=== PATIENT | female | born 1950 | race Two or more races ===

== ENCOUNTER 2024-10-09 23:12 | Emergency (ER) | payer MEDICARE, OTHER | END 2024-10-10 00:18 | disposition left against medical advice (07) | LOC: ER 23:19 | DX: R51.9 Headache, unspecified (principal); M54.50 Low back pain, unspecified; Z53.21 Procedure and treatment not carried out due to patient leaving prior to being seen by health care provider ==

== ENCOUNTER 2025-03-16 00:35 | Emergency (ER) | payer MEDICARE, OTHER ==
[~2025-03-16] VITALS: Ht 167.6 cm; Wt 81.6 kg
[2025-03-16] MEDS ORDERED: hydrALAZINE HCL IV 20 MG VIAL ONE (01:26)
[2025-03-16] MEDS ORDERED: ONDANSETRON HCL/PF 4 MG/2 ML VIAL ONE (01:26)
[2025-03-16] MEDS: hydrALAZINE HCL IV 20 MG VIAL IV ONE (01:32)
[2025-03-16] MEDS: ONDANSETRON HCL/PF 4 MG/2 ML VIAL IVP ONE (01:32)
[2025-03-16 01:33] LABS: PLATELET COUNT (AUTO) 181 K/uL (150-450); RED BLOOD CELL COUNT(AUTO) 4.64 MIL/uL (4.0-5.2); RED CELL DISTRIBUTION WIDTH 15.0 % (11.5-15.0); WHITE BLOOD COUNT (AUTO) 6.1 K/uL (4.3-11.0)
[2025-03-16 01:41] LABS: CALCIUM, SERUM 9.6 mg/dL (8.5-10.1); CREATININE 0.6 mg/dL (0.6-1.3); SODIUM SERUM 142 mmol/L (136-145); UREA NITROGEN, BLOOD 17 mg/dL (7-18)
[2025-03-16 01:55] LABS: NT-PRO BNP 205 pg/mL (0-125)
[2025-03-16] MEDS: ACETAMINOPHEN 325 MG TABLET PO ONE (03:16)
[2025-03-16] MEDS ORDERED: ACETAMINOPHEN 325 MG TABLET ONE (03:17)
[2025-03-16 04:08] VITALS: BP 155/87; TEMP 98.6; O2SAT 96
== END 2025-03-16 04:09 | disposition home or self-care (01) ==
LOC: ER 00:42
DX: I11.9 Hypertensive heart disease without heart failure (principal); E11.9 Type 2 diabetes mellitus without complications; R06.02 Shortness of breath; R51.9 Headache, unspecified; E87.8 Other disorders of electrolyte and fluid balance, not elsewhere classified
CPT/HCPCS: 99285; 96374; 71045; 96375; 93005; 85025; 80048; 36415; 84484; 83880; J0360; J2405

== ENCOUNTER 2025-04-16 00:58 | Emergency (ER) | payer MEDICARE, OTHER ==
[~2025-04-16] VITALS: Ht 157.5 cm; Wt 72.6 kg
[2025-04-16 02:24] LABS: PLATELET COUNT (AUTO) 202 K/uL (150-450); RED BLOOD CELL COUNT(AUTO) 5.00 MIL/uL (4.0-5.2); RED CELL DISTRIBUTION WIDTH 15.3 % (11.5-15.0); WHITE BLOOD COUNT (AUTO) 8.0 K/uL (4.3-11.0)
[2025-04-16 02:43] LABS: ASPARTATE AMINOTRANSFERASE 13 U/L (15-37); CALCIUM, SERUM 10.1 mg/dL (8.5-10.1); CREATININE 0.6 mg/dL (0.6-1.3); SODIUM SERUM 144 mmol/L (136-145); TOTAL PROTEIN, SERUM 8.0 g/dL (6.4-8.2); UREA NITROGEN, BLOOD 19 mg/dL (7-18)
[2025-04-16 02:46] LABS: ERYTHROCYTE SEDIMENTATION RATE 23 MM/HR (0-30)
[2025-04-16 02:47] LABS: APPEARANCE,URINE CLEAR (CLEAR); BLOOD, URINE NEGATIVE Ery/uL (NEGATIVE); LEUKOCYTE ESTERASE ,URINE TRACE (NEGATIVE); NITRITE, URINE POSITIVE (NEGATIVE); UGLUCOSE NEGATIVE (NEGATIVE)
[2025-04-16 02:53] LABS: INR 1.09 (0.91-1.10)
[2025-04-16] MEDS ORDERED: NITR100C6 PO (03:04)
[2025-04-16 03:10] LABS: ADD URINE CULTURE YES; SQUAMOUS EPITHELIAL CELL,UR 0-2 /HPF (None Seen)
[2025-04-16 03:21] VITALS: BP 146/84; TEMP 98.2; O2SAT 96
== END 2025-04-16 03:21 | disposition home or self-care (01) ==
LOC: ER 01:32
DX: I10 Essential (primary) hypertension (principal); E11.9 Type 2 diabetes mellitus without complications; R06.02 Shortness of breath; R10.20 Pelvic and perineal pain unspecified side; Z91.148 Patient's other noncompliance with medication regimen for other reason
CPT/HCPCS: 36415; 70450-TC; 71045-TC; 80048-TC; 80076-TC; 81001; 84484-TC; 85025-TC; 85652-TC; 85730-TC; 87086-TC